=== PATIENT | male | born 1950 | race Hispanic/Latino ===

== ENCOUNTER 2019-01-26 20:14 | Emergency (ER) | payer OTHER ==
--- OUTSIDE RECORDS SUMMARY | 2019-01-26 20:17 | XMS REPORT | Summary of Care ---
Author Author Sebastian Eugene Unknown Address Unknown Phone Unavailable Care Team Providers Care [employer] Operator Name Role Phone ARNOLDO Paredes, RENO Unavailable Unavailable MAXIMILIAN Paredes, JASIEL Unavailable Unavailable HUMA Paredes, SHAHEED Unavailable Unavailable YVES Paredes, ESTEBAN Unavailable Unavailable AIMEE P.ABebeto, MARICRUZ Unavailable Unavailable HUMA JI ND, SHAHEED Unavailable Unavailable DHEERAJ JI, BAYRON Unavailable Unavailable ASHOK JI ND, FRANNY CALDWELL Unavailable Unavailable Jose Luis JI, Igor Unavailable Unavailable Unavailable Unavailable Functional Status Name Dates Details Functional status health issues are not documented Status: Name Dates Details Cognitive status health issues are not documented Status: Problems Name Dates Details Impingement syndrome, shoulder, left (726.2, M75.42) Status: Active Arthritis (716.90, M19.90) Status: Active Abnormal liver enzymes (790.5, R74.8) Status: Active Anemia, unspecified type (285.9, D64.9) Status: Active Chills (without fever) (780.64, R68.83) Status: Active Sore throat (462, J02.9) Status: Active Acute URI (465.9, J06.9) Status: Active Nasal drainage (478.19, J34.89) Status: Active 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, 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) Status: Active Nasal septal perforation (478.19, J34.89) Status: Active Nasal valve stenosis (478.19, J34.89) Status: Active Limb pain (729.5, M79.609) Status: Active Alkaline phosphatase elevation (790.5, R74.8) Status: Active Chronic headaches (784.0, R51) Status: Active Nasal obstruction (478.19, J34.89) Status: Active Need for influenza vaccination (V04.81, Z23) Status: Active Need for pneumococcal vaccination (V03.82, Z23) Status: Active Risk for falls (V15.88, Z91.81) Status: Active Depression screen (V79.0, Z13.31) Status: Active Advance directive discussed with patient (V65.49, Z71.89) Status: Active Encounter for mini-mental status examination Status: Active Abnormal MMSE (780.97, F99) Status: Active GERD (gastroesophageal reflux disease) (530.81, K21.9) Status: Active High cholesterol (272.0, E78.00) Status: Active Need for hepatitis C screening test (V73.89, Z11.59) Status: Active Screen for colon cancer (V76.51, Z12.11) Status: Active Osteoporosis (733.00, M81.0) Status: Active Other headache syndrome (339.89, G44.89) Status: Active Chronic rhinitis (472.0, J31.0) Status: Active Abnormal MRI of head (793.0, R93.0) Status: Active Dementia (294.20, F03.90) Status: Active Memory loss (780.93, R41.3) Status: Active Fungal infection (117.9, B49) Status: Active Chronic ethmoidal sinusitis (473.2, J32.2) Status: Active Schizophrenia (295.90, F20.9) Status: Active Syncope (780.2, R55) Status: Active Murmur, cardiac (785.2, R01.1) Status: Active Clinical depression (311, F32.9) Status: Active Acute bronchitis, bacterial (466.0, J20.8) Status: Active PTSD (post-traumatic stress disorder) (309.81, F43.10) Status: Active Dizziness (780.4, R42) Status: Active Elevated prostate specific antigen (PSA) (790.93, R97.20) Status: Active Allergic sinusitis (477.9, J30.9) Status: Active Need for Tdap vaccination (V06.1, Z23) Status: Active Allergic rhinitis (477.9, J30.9) Status: Active Chronic maxillary sinusitis (473.0, J32.0) Status: Active Hypertension (401.9, I10) Status: Active 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 R.N. Active Omeprazole 20 MG Oral Capsule Delayed Release TAKE 1 CAPSULE DAILY. * Refills: 0 R.N. Active Simvastatin 40 MG Oral Tablet TAKE 1 TABLET DAILY. * Refills: 0 R.N. Active Fexofenadine HCl - 180 MG Oral Tablet TAKE 1 TABLET DAILY. * Quantity: 90 Refills: 1 JASIEL YAO M.D. * Start : 15-Jul-2017 Active SEROquel 400 MG Oral Tablet TAKE 1 TABLET DAILY- PRESCRIBED BY PSYCHIATRIST * Refills: 0 R.N. Active AmLODIPine Besylate 5 MG Oral Tablet TAKE 1 TABLET BY MOUTH EVERY DAY APPOINTMENT FOR FURTHER REFILLS * Quantity: 30 Refills: 1 SHAHEED FINN M.D. * Start : 06-Apr-2018 Active FLUoxetine HCl - 40 MG Oral Capsule TAKE 1 CAPSULE DAILY * Quantity: 90 Refills: 3 RENO MCLAUGHLIN M.D. * Start : 21-Nov-2017 Active BusPIRone HCl - 10 MG Oral Tablet TAKE 2 TABLETS BY MOUTH DAILY * Quantity: 60 Refills: 3 ESTEBAN MARINELLI M.D. * Start : 04-Apr-2018 Active ProAir HFA 108 (90 Base) MCG/ACT Inhalation Aerosol Solution INHALE 1 TO 2 PUFFS EVERY 4 TO 6 HOURS NEEDED. * Quantity: 1 Refills: 1 SHAHEED FINN M.D. * Start : 30-Mar-2018 Active 8.5 GM Inhaler Fluticasone Propionate 50 MCG/ACT Nasal Suspension USE 2 SPRAYS IN EACH NOSTRIL TWICE DAILY. * Quantity: 1 Refills: 3 JASIEL YAO M.D. * Start : 08-Aug-2018 Active 9.9 ML Bottle Testosterone Cypionate 200 MG/ML Intramuscular Solution inject 0.5 ml IM every week as directed by your doctor * Refills: 0 R.N. * Start : 02-Oct-2018 Active Doxycycline Monohydrate 100 MG Oral Capsule TAKE 1 CAPSULE TWICE DAILY * Quantity: 28 Refills: 0 MARICRUZ GUTIERREZ * Start : 11-Oct-2018 Active PredniSONE 20 MG Oral Tablet 3 PO QD x 3 days, then 2 PO QD x 3 days, then 1 PO QD x 3 days * Quantity: 18 Refills: 0 AIMEE Harish.Emilee, MARICRUZ * Start : 11-Oct-2018 Active Allergies and Adverse Reactions Name Dates Details Bactrim (Allergy) Status: Active Past Medical History Name Dates Details History of hearing loss (V12.49, Z86.69) Status: Resolved History of sinusitis (V12.69, Z87.09) Status: Resolved Procedures Procedure Dates Details History of Facial Surgery Completed History of Hip Surgery Completed History of Hand Surgery Completed History of Prostate Surgery Completed History of Sinus Surgery Completed Immunization Name Dates Details Fluzone High-Dose 0.5 ML Intramuscular Suspension Prefilled Syringe Lot #: [id number] on: 25-Aug-2017 Prevnar 13 Intramuscular Suspension Lot #: [id number] on: 25-Aug-2017 Fluzone High-Dose 0.5 ML Intramuscular Suspension Prefilled Syringe Lot #: [id number] on: 08-Aug-2018 Tdap (Adacel) Lot #: [id number] on: 08-Aug-2018 Family History Name Dates Details Family history of hypertension (V17.49, Z82.49) Status: Active Social History Name Dates Details - Status: Name Dates Details Never smoker Never smoker Vital Signs Date Test Result Details [id number] BP Systolic 149 mm[Hg] Status: BP Diastolic 83 mm[Hg] Status: Heart Rate 64 /min Status: [id number]:57 BP Systolic 165 mm[Hg] Status: Comments: Location: LUE; Position: Sitting BP Diastolic 106 mm[Hg] Status: Comments: Location: LUE; Position: Sitting Heart Rate 70 /min Status: Height 69 in Status: Weight 168.5625 lb Status: Body Mass Index Calculated 24.89 kg/m2 Status: Body Surface Area Calculated 1.92 m2 Status: Temperature 98.2 f Status: Comments: Method: Temporal Respiration Rate 16 /min Status: Results Date Description Value Details Results not documented Plan of Care Name Dates Details Planned Observations Planned Goals not documented Planned Encounters Appointment; JASIEL YAO M.D. On: 13-Nov-2018 15:45 Appointment; IGOR GARDNER M.D. On: 19-Jun-2019 9:20 Instructions Name Dates Details Instructions not documented Encounters Appointment; BAYRON ESQUEDA M.D. Encounter Diagnosis: Problem not documented On: 10-Feb-2017 13:00 Appointment; BAYRON ESQUEDA M.D. Encounter Diagnosis: Problem not documented On: 31-Mar-2017 13:45 Appointment; BAYRON ESQUEDA M.D. Encounter Diagnosis: Problem not documented On: 14-Apr-2017 13:45 Appointment; SHAHEED FINN M.D. Encounter Diagnosis: Problem not documented On: 28-Apr-2017 11:30 Appointment; SHAHEED FINN M.D. Encounter Diagnosis: Problem not documented On: 26-May-2017 9:30 Appointment; DONNELL LARSEN M.D. Encounter Diagnosis: Problem not documented On: 26-May-2017 15:30 Appointment; MIGUELANGEL OWEN M.D. Encounter Diagnosis: Problem not documented On: 15-Jul-2017 8:00 Appointment; BAYRON ESQUEDA M.D. Encounter Diagnosis: Problem not documented On: 21-Jul-2017 10:30 Appointment; SHAHEED FINN M.D. Encounter Diagnosis: Problem not documented On: 25-Aug-2017 10:00 Appointment; MIGUELANGEL OWEN M.D. Encounter Diagnosis: Problem not documented On: 01-Sep-2017 16:00 Appointment; SHAHEED FINN M.D. Encounter Diagnosis: Problem not documented On: 14-Oct-2017 11:00 Appointment; SHAHEED FINN M.D. Encounter Diagnosis: Problem not documented On: 24-Oct-2017 11:30 Appointment; RENO MCLAUGHLIN M.D. Encounter Diagnosis: Problem not documented On: 24-Oct-2017 14:00 Appointment; IGOR GARDNER M.D. Encounter Diagnosis: Problem not documented On: 08-Nov-2017 11:40 Appointment; [place]-MS, ECHO Encounter Diagnosis: Problem not documented On: 11-Nov-2017 11:00 Appointment; [place]-MS, HOLTER Encounter Diagnosis: Problem not documented On: 11-Nov-2017 13:00 Appointment; SHAHEED FINN M.D. Encounter Diagnosis: Problem not documented On: 08-Dec-2017 9:30 Appointment; IGOR GARDNER M.D. Encounter Diagnosis: Problem not documented On: 13-Dec-2017 12:40 Appointment; [place]-MS, ECHO Encounter Diagnosis: Problem not documented On: 21-Dec-2017 13:00 Appointment; IGOR GARDNER M.D. Encounter Diagnosis: Problem not documented On: 21-Dec-2017 14:00 Appointment; ESTEBAN MARINELLI M.D. Encounter Diagnosis: Problem not documented On: 16-Jan-2018 10:30 Appointment; MISA CURTIS, PHD Encounter Diagnosis: Problem not documented On: 10-Mar-2018 8:30 Appointment; MISA CURTIS, PHD Encounter Diagnosis: Problem not documented On: 20-Mar-2018 8:30 Appointment; SHAHEED FINN M.D. Encounter Diagnosis: Problem not documented On: 30-Mar-2018 13:00 Appointment; RENO MCLAUGHLIN M.D. Encounter Diagnosis: Problem not documented On: 17-Apr-2018 10:30 Appointment; SHAHEED FINN M.D. Encounter Diagnosis: Problem not documented On: 21-Jun-2018 10:30 Appointment; IGOR GARDNER M.D. Encounter Diagnosis: Problem not documented On: 23-Jun-2018 9:20 Appointment; SHAHEED FINN M.D. Encounter Diagnosis: Problem not documented On: 21-Jul-2018 9:30 Appointment; JASIEL YAO M.D. Encounter Diagnosis: Problem not documented On: 25-Jul-2018 11:15 Appointment; JASIEL YAO M.D. Encounter Diagnosis: Problem not documented On: 08-Aug-2018 13:30 Appointment; JASIEL YAO M.D. Encounter Diagnosis: Problem not documented On: 15-Aug-2018 8:15 Appointment; JASIEL YAO M.D. Encounter Diagnosis: Problem not documented On: 15-Aug-2018 8:15 Appointment; MARICRUZ YU P.A. Encounter Diagnosis: Problem not documented On: 16-Sep-2018 9:45 Appointment; JASIEL YAO M.D. Encounter Diagnosis: Problem not documented On: 02-Oct-2018 13:15 Appointment; LEYDI YEUNG NP Encounter Diagnosis: Problem not documented On: 10-Oct-2018 16:00 Appointment; MARICRUZ YU P.A. Encounter Diagnosis: Problem not documented On: 11-Oct-2018 15:00
== END 2019-01-26 20:30 | disposition left against medical advice (07) ==
LOC: ER 20:14
DX: R06.02 Shortness of breath (principal)